=== PATIENT | male | born 1980 | race Caucasian/White ===

== ENCOUNTER 2019-06-25 01:27 | Emergency (ER) | payer BC ==
[~2019-06-25] VITALS: Ht 177.8 cm; Wt 100.0 kg
[~2019-06-25 01:27] MED LIST: TRIA15OI9 TOP
[2019-06-25 01:30] VITALS: BP 172/118
[2019-06-25] MEDS ORDERED: predniSONE 20 mg tablet PO ONE (01:45)
[2019-06-25] MEDS ORDERED: diazepam 5mg tablet PO ONE (01:45)
[2019-06-25] MEDS ORDERED: DIAZ5TAB PO (01:47)
[2019-06-25] MEDS ORDERED: PRED20TA PO (01:47)
== END 2019-06-25 01:55 | disposition home or self-care (01) ==
LOC: ER 01:28
DX: S16.1XXA Strain of muscle, fascia and tendon at neck level, initial encounter (principal); E78.00 Pure hypercholesterolemia, unspecified; Z98.890 Other specified postprocedural states; X58.XXXA Exposure to other specified factors, initial encounter; Y93.89 Activity, other specified; Y92.89 Other specified places as the place of occurrence of the external cause; Y99.8 Other external cause status
CPT/HCPCS: 99283; J7512

== ENCOUNTER 2019-07-06 22:38 | Emergency (ER) | payer BC ==
[~2019-07-06] VITALS: Ht 177.8 cm; Wt 99.0 kg
[~2019-07-06 22:38] MED LIST changes: +DIAZ5TAB PO
[2019-07-06] MEDS ORDERED: morphine 4 MG/ML inj SYRINge IV ONE (23:30)
[2019-07-06] MEDS ORDERED: normal saline 1000ML IV soln IVB ONE (23:30)
[2019-07-06] MEDS ORDERED: ondansetron/PF 4mg/2ml inj IV ONE (23:30)
[2019-07-06] MEDS ORDERED: iohexol 300mg/ml 100ml inj. ONE (23:32)
[2019-07-06] MEDS ORDERED: methylPREDNISolone sod succ 125mg/2ml vial IV ONE (23:45)
[2019-07-06] MEDS ORDERED: clindamycin 600mg/D5W 50ml 50 ML IV ONE (23:45)
[2019-07-06 23:52] LABS: HEMOGLOBIN 12.6 g/dl (14.0-17.9); WHITE BLOOD COUNT 13.2 X10'3 (4.5-11.0)
[2019-07-06 23:54] LABS: BASOPHILS # (AUTO) 0.1 X10'3 (0-0.2); BASOPHILS % (AUTO) 0.5 % (0-1); EOSINOPHILS # (AUTO) 0.1 X10'3 (0-0.9); HEMATOCRIT 38.1 % (42.0-52.0); LYMPHOCYTES # (AUTO) 1.6 X10'3 (1.1-4.8); LYMPHOCYTES % (AUTO) 12.1 % (21-51); MEAN CORPUSCULAR HEMOGLOBIN 25.1 PG (27.0-31.0); MEAN CORPUSCULAR VOLUME 75.8 FL (78-98); MONOCYTES # (AUTO) 1.1 X10'3 (0-0.9); MONOCYTES % (AUTO) 8.2 % (2-12); NEUTROPHILS # (AUTO) 10.3 X10'3 (1.8-7.7); NEUTROPHILS % (AUTO) 78.2 % (42-75); PLATELET COUNT 327 X10'3 (140-440); RED BLOOD COUNT 5.02 X10'6 (4.70-6.10)
[2019-07-06 23:56] LABS: ALANINE AMINOTRANSFERASE 75 U/L (12-78); ALBUMIN/GLOBULIN RATIO 0.6 (1.1-1.5); ALKALINE PHOSPHATASE 98 IU/L (46-116); ANION GAP 7 (8-16); ASPARTATE AMINO TRANSFERASE 23 U/L (10-37); BILIRUBIN,TOTAL 0.4 MG/DL (0.1-1.0); BLOOD UREA NITROGEN 14 MG/DL (7-18); BUN/CREATININE RATIO 14.6 (5.4-32.0); CALCIUM 9.3 MG/DL (8.5-10.1); CHLORIDE 103 MMOL/L (99-107); CREATININE 0.96 MG/DL (0.60-1.10); GLUCOSE 126 MG/DL (70-104); POTASSIUM 4.1 MMOL/L (3.5-5.1); SODIUM 139 MMOL/L (135-145); TOTAL CARBON DIOXIDE 28.7 MMOL/L (24-32); TOTAL PROTEIN 7.9 G/DL (6.4-8.2); eGFR 88 ML/MIN
[2019-07-07] MEDS ORDERED: CefTRIAXone/D5W-Rocephin 1gm 50 ML IV ONE (00:45)
[2019-07-07] MEDS ORDERED: vancomycin/NS 1 GM ADD-VANTAGE 250 ML X 1 DOSE IV ONE (00:55)
[2019-07-07] MEDS ORDERED: morphine 4 MG/ML inj SYRINge IV ONE (01:05)
--- NOTE | 2019-07-07 02:03 | NUR ---
BREAKING PRIMARY RN, PT IS SITTING UP IN BED, TANJAO IS RUNNING, STABLE
[2019-07-07 02:04] VITALS: BP 147/88
--- NOTE | 2019-07-07 02:12 | NUR ---
CALLED [facility] AT 2:12. 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
[2019-07-07] MEDS ORDERED: normal saline 1000ML IV soln IVB ONE (02:15)
[2019-07-07 08:22] LABS: PLATELET ESTIMATE NORMAL; TOTAL CELLS COUNTED 100
[2019-07-07 08:23] LABS: MICROCYTOSIS 1+
== END 2019-07-07 02:32 | disposition short-term general hospital (02) ==
LOC: ER 22:39
DX: G06.2 Extradural and subdural abscess, unspecified (principal); L02.11 Cutaneous abscess of neck; E78.00 Pure hypercholesterolemia, unspecified; Z79.899 Other long term (current) drug therapy
CPT/HCPCS: 36415; 70491; 80053; 83605; 84145; 85025; 87040; 87077; 87081; 87186; 87880; 93005; 96365; 96367; 96375; 99285; J0696; J2270; J2405; J2930; J3370; J7030; Q9967; J3490

== ENCOUNTER 2023-03-11 17:28 | Emergency (ER) | payer BC ==
[~2023-03-11] VITALS: Ht 177.8 cm; Wt 100.8 kg
[2023-03-11 17:36] VITALS: BP 169/105
[2023-03-16] MEDS ORDERED: ATOR-2 PO (13:50)
[2023-03-16] MEDS ORDERED: ICOS1CAP2 PO (13:50)
[2023-03-16] MEDS ORDERED: AMLO10TA13 PO (13:50)
== END 2023-03-11 20:13 | disposition left against medical advice (07) ==
LOC: ER 17:28
DX: R07.89 Other chest pain (principal); Z53.21 Procedure and treatment not carried out due to patient leaving prior to being seen by health care provider
CPT/HCPCS: 71045; 93005; 99281